=== PATIENT | male | born 1985 | race Caucasian/White ===

== ENCOUNTER 2018-09-08 23:04 | Emergency (ER) | payer MEDICAID, OTHER ==
[~2018-09-08] VITALS: Ht 182.9 cm; Wt 89.2 kg
[2018-09-09] MEDS ORDERED: PRED20TA PO (01:37)
[2018-09-09] MEDS ORDERED: triamcinolone acetonide 40mg/ml inj IM ONE (01:40)
[2018-09-09 01:58] VITALS: BP 136/87
== END 2018-09-09 02:00 | disposition home or self-care (01) ==
LOC: ER 23:05
DX: R21 Rash and other nonspecific skin eruption (principal); Z79.899 Other long term (current) drug therapy
CPT/HCPCS: 96372; 99283; J3301

== ENCOUNTER 2019-03-27 10:00 | Outpatient (CLI) | payer MEDICAID | END 2019-03-27 23:59 | disposition home or self-care (01) | LOC: RAD 10:00 | PROVIDERS: ATTEND Physician Assistant | DX: G43.909 Migraine, unspecified, not intractable, without status migrainosus (principal); J45.909 Unspecified asthma, uncomplicated | CPT/HCPCS: 95816 ==